=== PATIENT | female | born 1940 | race Caucasian/White ===

== ENCOUNTER 2017-02-14 04:29 | Emergency (ER) | payer MEDICARE, BC ==
[~2017-02-14] VITALS: Ht 170.2 cm; Wt 78.0 kg
[~2017-02-14 04:29] MED LIST: ALBU18HF IH; ASPI-482 PO; CALC-45 PO; CARV3.122 PO; CETI10CA PO; CYCL1DRO EACHEYE; ERYT250C8 PO; LEVO50TA5 PO; LOSA1TAB17 PO; LOTE5DRO3 EACHEYE; LUTE20CA4 PO; MONT10TA9 PO; MULT1CAP15 PO; OMEP40CA5 PO; PRAV20TA2 PO; SODI3.5O3 OP; SUCR1TAB35 PO; VITA100T5 PO
--- NOTE | 2017-02-14 04:31 | ED.ADGEN ---
Adult General Chief Complaint Chief Complaint chest pain (IRMA GOODEN MD) HPI HPI Patient is a 76 y/o female presenting with 5min of sharp anterior chest pain that awakened her from sleep. she started breathing deep and belching to make it go away. no SOA, no N/v/d. no recent illnesses. she has felt well recently and no exertional CP, dyspnea, lightheadedness. she had a heart cath in 2015 at [facility]. no interventions. she has not had stents or bypasses. she has gastroparesis and occasionally takes omeprazole and carafate. currently she is pain free. (IRMA GOODEN MD) Review of Systems Review of Systems Constitutional: Denies fever or chills [] Eyes: Denies change in visual acuity, redness, or eye pain [] HENT: Denies nasal congestion or sore throat [] Respiratory: Denies cough or shortness of breath [] Cardiovascular: substernal sharp chest pain GI: Denies abdominal pain, nausea, vomiting, bloody stools or diarrhea [] : Denies dysuria or hematuria [] Musculoskeletal: Denies back pain or joint pain [] Integument: Denies rash or skin lesions [] Neurologic: Denies headache, focal weakness or sensory changes [] Endocrine: Denies polyuria or polydipsia [] (IRMA GOODEN MD) Current Medications Current Medications Current Medications Medications (Trade) Dose Ordered Sig/[facility] Start Time Stop Time Status Last Admin Dose Admin Aspirin (Children'S Aspirin) 324 mg 1X ONCE 02/14/17 05:00 02/14/17 05:12 DC 02/14/17 05:04 324 MG Multi-Ingredient Mouthwash/Gargle (Gi Cocktail) 20 ml 1X ONCE 02/14/17 05:00 02/14/17 05:12 DC 02/14/17 05:04 20 ML (CUAUHTEMOC ROSA MD) Allergies Allergies Allergies Coded Allergies Type Severity Reaction Last Updated Verified adhesive Adverse Reaction Mild Rash 12/25/14 Yes Sulfa (Sulfonamide Antibiotics) Adverse Reaction Unknown 02/14/17 Yes Uncoded Allergies Type Severity Reaction Last Updated Verified ANTIOBIOTIC CREAM Adverse Reaction Unknown Rash 12/25/14 (CUAUHTEMOC ROSA MD) Physical Exam Physical Exam Constitutional: Well developed, well nourished, no acute distress, non-toxic appearance. [] HENT: Normocephalic, atraumatic, bilateral external ears normal, oropharynx moist, no oral exudates, nose normal. [] Eyes: PERRLA, EOMI, conjunctiva normal, no discharge. [] Neck: Normal range of motion, no tenderness, supple, no stridor. [] Cardiovascular:Heart rate regular rhythm, no murmur [] Lungs & Thorax: Bilateral breath sounds clear to auscultation [] Abdomen: Bowel sounds normal, soft, slightly tender in epigastric area, no masses, no pulsatile masses. [] Skin: Warm, dry, no erythema, no rash. [] Back: No tenderness, no CVA tenderness. [] Extremities: No tenderness, no cyanosis, no clubbing, ROM intact, no edema. [] Neurologic: Alert and oriented X 3, normal motor function, normal sensory function, no focal deficits noted. [] Psychologic: Affect normal, judgement normal, mood normal. [] (IRMA GOODEN MD) Current Patient Data Vital Signs Vital Signs Date Time Temp Pulse Resp B/P (MAP) Pulse Ox O2 Delivery O2 Flow Rate FiO2 02/14/17 05:57 58 14 158/63 (94) 97 Room Air (CUAUHTEMOC ROSA MD) Lab Results Laboratory Tests Test 02/14/17 04:55 02/14/17 05:19 02/14/17 05:49 White Blood Count 6.0 x10^3/uL (4.0-11.0) Red Blood Count 4.33 x10^6/uL (3.50-5.40) Hemoglobin 13.3 g/dL (12.0-15.5) Hematocrit 38.9 % (36.0-47.0) Mean Corpuscular Volume 90 fL (79-100) Mean Corpuscular Hemoglobin 31 pg (25-35) Mean Corpuscular Hemoglobin Concent 34 g/dL (31-37) Red Cell Distribution Width 13.6 % (11.5-14.5) Platelet Count 242 x10^3/uL (140-400) Neutrophils (%) (Auto) 42 % (31-73) Lymphocytes (%) (Auto) 42 % (24-48) Monocytes (%) (Auto) 10 % (0-9) H Eosinophils (%) (Auto) 4 % (0-3) H Basophils (%) (Auto) 2 % (0-3) Neutrophils # (Auto) 2.6 x10^3uL (1.8-7.7) Lymphocytes # (Auto) 2.5 x10^3/uL (1.0-4.8) Monocytes # (Auto) 0.6 x10^3/uL (0.0-1.1) Eosinophils # (Auto) 0.2 x10^3/uL (0.0-0.7) Basophils # (Auto) 0.1 x10^3/uL (0.0-0.2) Sodium Level 138 mmol/L (136-145) Potassium Level 4.4 mmol/L (3.5-5.1) Chloride Level 103 mmol/L (98-107) Carbon Dioxide Level 33 mmol/L (21-32) H Anion Gap 2 (6-14) L Blood Urea Nitrogen 12 mg/dL (7-20) Creatinine 0.8 mg/dL (0.6-1.0) Estimated GFR (Cockcroft-Gault) 70.1 BUN/Creatinine Ratio 15 (6-20) Glucose Level 105 mg/dL (70-99) H Calcium Level 10.0 mg/dL (8.5-10.1) Total Bilirubin 0.5 mg/dL (0.2-1.0) Aspartate Amino Transferase (AST) 24 U/L (15-37) Alanine Aminotransferase (ALT) 29 U/L (14-59) Alkaline Phosphatase 57 U/L (46-116) Troponin I Quantitative < 0.017 ng/mL (0-0.055) Total Protein 7.9 g/dL (6.4-8.2) Albumin 3.9 g/dL (3.4-5.0) Albumin/Globulin Ratio 1.0 (1.0-1.7) Lipase 161 U/L (73-393) Urine Collection Type Unknown Urine Color Yellow Urine Clarity Clear Urine pH 6.0 Urine Specific [place] 1.015 Urine Protein Neg (NEG-TRACE) Urine Glucose (UA) Neg mg/dL (NEG) Urine Ketones (Stick) Neg mg/dL (NEG) Urine Blood Neg (NEG) Urine Nitrite Neg (NEG) Urine Bilirubin Neg (NEG) Urine Urobilinogen Dipstick 0.2 mg/dL (0.2 mg/dL) Urine Leukocyte Esterase Trace (NEG) Urine RBC 0 /HPF (0-2) Urine WBC 1-4 /HPF (0-4) Urine Squamous Epithelial Cells Few /LPF Urine Bacteria Few /HPF (0-FEW) (CUAUHTEMOC ROSA MD) Lab Results Laboratory Tests Test 02/14/17 04:55 02/14/17 05:19 White Blood Count 6.0 x10^3/uL (4.0-11.0) Red Blood Count 4.33 x10^6/uL (3.50-5.40) Hemoglobin 13.3 g/dL (12.0-15.5) Hematocrit 38.9 % (36.0-47.0) Mean Corpuscular Volume 90 fL (79-100) Mean Corpuscular Hemoglobin 31 pg (25-35) Mean Corpuscular Hemoglobin Concent 34 g/dL (31-37) Red Cell Distribution Width 13.6 % (11.5-14.5) Platelet Count 242 x10^3/uL (140-400) Neutrophils (%) (Auto) 42 % (31-73) Lymphocytes (%) (Auto) 42 % (24-48) Monocytes (%) (Auto) 10 % (0-9) H Eosinophils (%) (Auto) 4 % (0-3) H Basophils (%) (Auto) 2 % (0-3) Neutrophils # (Auto) 2.6 x10^3uL (1.8-7.7) Lymphocytes # (Auto) 2.5 x10^3/uL (1.0-4.8) Monocytes # (Auto) 0.6 x10^3/uL (0.0-1.1) Eosinophils # (Auto) 0.2 x10^3/uL (0.0-0.7) Basophils # (Auto) 0.1 x10^3/uL (0.0-0.2) Sodium Level 138 mmol/L (136-145) Potassium Level 4.4 mmol/L (3.5-5.1) Chloride Level 103 mmol/L (98-107) Carbon Dioxide Level 33 mmol/L (21-32) H Anion Gap 2 (6-14) L Blood Urea Nitrogen 12 mg/dL (7-20) Creatinine 0.8 mg/dL (0.6-1.0) Estimated GFR (Cockcroft-Gault) 70.1 BUN/Creatinine Ratio 15 (6-20) Glucose Level 105 mg/dL (70-99) H Calcium Level 10.0 mg/dL (8.5-10.1) Total Bilirubin 0.5 mg/dL (0.2-1.0) Aspartate Amino Transferase (AST) 24 U/L (15-37) Alanine Aminotransferase (ALT) 29 U/L (14-59) Alkaline Phosphatase 57 U/L (46-116) Troponin I Quantitative < 0.017 ng/mL (0-0.055) Total Protein 7.9 g/dL (6.4-8.2) Albumin 3.9 g/dL (3.4-5.0) Albumin/Globulin Ratio 1.0 (1.0-1.7) Lipase 161 U/L (73-393) (IRMA GOODEN MD) EKG EKG Time 0443 HR 56 occasional PVC's, no ST elevation. (IRMA GOODEN MD) Radiology/Procedures Radiology/Procedures cxr unremarkable[] (IRMA GOODEN MD) Course & Med Decision Making Course & Med Decision Making Pertinent Labs and Imaging studies reviewed. (See chart for details) Will have Dr. Rosa f/u testing and disposition [] (IRMA GOODEN MD) Course & Med Decision Making 0600 I assumed care of the patient from Dr. Gooden. We discussed the case. Labs are pending, also pending is cardiac catheterization report from [facility] from 2015. Labs are all unremarkable. I reviewed the EKG and the chest x-ray as well. Cardiac catheterization report dated July 28, 2015 was faxed from [facility]. Right coronary, left main, LAD, left circumflex are all free of any angiographically significant stenosis. Ramus intermedius vessel had it focal 20% stenosis with normal flow noted. Impression was mild nonobstructive coronary disease. Patient has not developed any significant risk factors for coronary artery disease since this essentially negative heart catheterization a year and a half ago. I visited with the patient and her . She has been resting comfortably without symptoms in the ED. Although her med list includes omeprazole, she has not been taking it regularly. I encouraged her to resume regular use of omeprazole and have liquid and acid on hand in case she has another episode. Return to ED if any concerning symptoms, follow up with her memory care if she continues to have any episodes. Patient and her are agreeable to that plan. (CUAUHTEMOC ROSA MD) Final Impression Final Impression chest pain[] Problems: (IRMA GOODEN MD) Dragon Disclaimer Dragon Disclaimer This electronic medical record was generated, in whole or in part, using a voice recognition dictation system. (IRMA GOODEN MD) IRMA GOODEN MD Feb 14, 2017 04:31 CUAUHTEMOC ROSA MD Feb 14, 2017 06:43
[2017-02-14] MEDS ORDERED: ASPIRIN 81 MG TAB.CHEW PO ONE (05:00)
[2017-02-14] MEDS ORDERED: LIDO:MAALOX 1:1 20 ML SINGLE DOSE PO ONE (05:00)
[2017-02-14 05:15] LABS: BASO # 0.1 x10^3/uL (0.0-0.2); BASO % 2 % (0-3); EOS # 0.2 x10^3/uL (0.0-0.7); EOS % 4 % (0-3); HEMATOCRIT 38.9 % (36.0-47.0); HEMOGLOBIN 13.3 g/dL (12.0-15.5); LYMPH # 2.5 x10^3/uL (1.0-4.8); LYMPH % 42 % (24-48); MEAN CORPUSCULAR HEMOGLOBIN 31 pg (25-35); MEAN CORPUSCULAR HGB CONC 34 g/dL (31-37); MEAN CORPUSCULAR VOLUME 90 fL (79-100); MONO # 0.6 x10^3/uL (0.0-1.1); MONO % 10 % (0-9); NEUT # 2.6 x10^3uL (1.8-7.7); NEUT % 42 % (31-73); PLATELET COUNT 242 x10^3/uL (140-400); RED BLOOD COUNT 4.33 x10^6/uL (3.50-5.40); RED CELL DISTRIBUTION WIDTH 13.6 % (11.5-14.5)
[2017-02-14 05:44] LABS: ALBUMIN 3.9 g/dL (3.4-5.0); CREATININE 0.8 mg/dL (0.6-1.0); GFR 70.1; POTASSIUM 4.4 mmol/L (3.5-5.1); TOTAL BILIRUBIN 0.5 mg/dL (0.2-1.0); TOTAL PROTEIN 7.9 g/dL (6.4-8.2)
[2017-02-14 05:57] VITALS: BP 158/63
[2017-02-14 06:04] LABS: BACTERIA,URINE FEW /HPF (0-FEW); BILIRUBIN,URINE NEG (NEG); CLARITY,URINE CLEAR; COLOR,URINE YELLOW; GLUCOSE,URINE NEG (NEG); NITRITE,URINE NEG (NEG); RBC,URINE 0 /HPF (0-2); SQUAMOUS EPITHELIAL CELL,UR FEW /LPF; UROBILINOGEN,URINE 0.2 mg/dL (0.2 mg/dL)
--- NOTE | 2017-02-14 06:32 | EKG ---
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
--- NOTE | 2017-02-14 07:13 | RAD ---
Portable chest, 02/14/2017: History: Chest pain Comparison is made to a study from 04/03/2012. The heart is enlarged. The pulmonary vascularity is normal. There is scarring over the pulmonary apices. No acute infiltrates are seen. There is no evidence of pleural fluid. IMPRESSION: 1. Cardiomegaly. 2. No acute abnormality is detected.
== END 2017-02-14 06:46 | disposition home or self-care (01) ==
LOC: ER 04:29
DX: R07.89 Other chest pain (principal); R07.2 Precordial pain; Z95.818 Presence of other cardiac implants and grafts; Z88.2 Allergy status to sulfonamides; Z88.8 Allergy status to other drugs, medicaments and biological substances
CPT/HCPCS: 36415; 71010; 80053; 81001; 83690; 84484; 85025; 87086; 93005; 99285-25

== ENCOUNTER → 2017-04-06 | Outpatient (CLI) | payer MEDICARE, BC ==
[~2017-04-06] MED LIST changes: -LOSA1TAB17 PO; +LOSA1TAB22 PO
--- NOTE | 2017-04-06 15:06 | RAD ---
DATE: 04/06/2017 EXAM: MAMMO KIM DENNIS RAHMAN, BREAST RIGHT HISTORY: Right nipple discharge. COMPARISON: 04/05/2016. This study was interpreted with the benefit of Computerized Aided Detection (CAD). FINDINGS: The parenchymal pattern is stable. No dominant mass or malignant appearing microcalcifications are seen. There are benign calcifications bilaterally. The axillae are unremarkable. Breast Density: HETERO The breast parenchyma is heterogeneously dense, which could reduce sensitivity of mammography. Breast parenchyma level C. IMPRESSION: No mammographic features suspicious for malignancy are identified. Right breast ultrasound will follow to evaluate the retroareolar right breast. Right breast ultrasound: Sonographic interrogation of the retroareolar right breast was performed. There are mildly prominent ducts at this location. No intraductal mass is seen. No suspicious abnormality is detected. Impression: Unremarkable right breast ultrasound. BI-RADS CATEGORY: 2 BENIGN FINDING(S) RECOMMENDED FOLLOW-UP: 12M 12 MONTH FOLLOW-UP PQRS compliance statement: Patient information was entered into a reminder system with a target due date 04/06/2018 for the next mammogram. Mammography is a sensitive method for finding small breast cancers, but it does not detect them all and is not a substitute for careful clinical examination. A negative mammogram does not negate a clinically suspicious finding and should not result in delay in biopsying a clinically suspicious abnormality. "Our facility is accredited by the [employer] Mammography Program."
== END | disposition home or self-care (01) ==
LOC: MAMMO 13:07
PROVIDERS: ATTEND Surgery
DX: N64.52 Nipple discharge (principal); R92.1 Mammographic calcification found on diagnostic imaging of breast
CPT/HCPCS: 76641; G0204; G0279; 77062; 77066

== ENCOUNTER → 2017-11-30 | Outpatient (CLI) | payer MEDICARE, BC ==
[2017-11-30 12:15] LABS: ALBUMIN 3.8 g/dL (3.4-5.0); CALCIUM 9.5 mg/dL (8.5-10.1); CREATININE 0.8 mg/dL (0.6-1.0); GFR 69.9; TOTAL BILIRUBIN 0.7 mg/dL (0.2-1.0); TOTAL PROTEIN 7.8 g/dL (6.4-8.2)
== END | disposition home or self-care (01) ==
LOC: LAB 10:35
PROVIDERS: ATTEND Nurse Practitioner
DX: E78.5 Hyperlipidemia, unspecified (principal); I10 Essential (primary) hypertension; E03.9 Hypothyroidism, unspecified
CPT/HCPCS: 36415; 80053; 80061

== ENCOUNTER → 2018-05-21 | Outpatient (CLI) | payer MEDICARE, BC ==
[~2018-05-21] MED LIST changes: -CARV3.122 PO; +CARV3.1230 PO
--- NOTE | 2018-05-22 14:57 | RAD ---
DATE: 05/21/2018 4:00 PM EXAM: MAMMO KIM SCREENING BILATERAL HISTORY: routine screening evaluation. COMPARISON: Prior mammographic imaging dating back to 02/02/2009 Bilateral CC and MLO views of the breasts were performed. Bilateral breast tomosynthesis was performed in CC and MLO projections. This study was interpreted with the benefit of Computerized Aided Detection (CAD ). Breast Density: The breast parenchyma is dense, which could reduce the sensitivity of mammography. Breast parenchyma level density D. FINDINGS: Benign calcifications are present. No suspicious masses, microcalcifications or architectural distortion is present to suggest malignancy in either breast. The visualized axillae are unremarkable. IMPRESSION: No mammographic evidence of malignancy. BI-RADS CATEGORY: 2 BENIGN FINDING(S) RECOMMENDED FOLLOW-UP: 12M 12 MONTH FOLLOW-UP Annual screening mammography is recommended, unless clinically indicated sooner based on symptoms or change in physical exam. PQRS compliance statement: Patient information was entered into a reminder system with a target due date 05/22/2019 for the next mammogram. Mammography is a sensitive method for finding small breast cancers, but it does not detect them all and is not a substitute for careful clinical examination. A negative mammogram does not negate a clinically suspicious finding and should not result in delay in biopsying a clinically suspicious abnormality. "Our facility is accredited by the [employer] Mammography Program." JOHNNAD
== END | disposition home or self-care (01) ==
LOC: MAMMO 14:06
PROVIDERS: ATTEND Family Medicine
DX: Z12.31 Encounter for screening mammogram for malignant neoplasm of breast (principal)
CPT/HCPCS: 77063; 77067

== ENCOUNTER → 2018-08-26 | Outpatient (CLI) | payer MEDICARE, BC ==
[~2018-08-26] MED LIST changes: -ALBU18HF IH; +ALBU2.5V8 IH
--- NOTE | 2018-08-26 12:22 | RAD ---
EXAM: Right hip, 2 views. HISTORY: Instability. COMPARISON: None. FINDINGS: 2 views of the right hip are obtained. There is no fracture, dislocation or subluxation. There is minimal marginal acetabular spurring. There is a small bump at the femoral head-neck junction, not within limits to suggest chronic impingement. There is degenerative change at the lumbosacral junction. IMPRESSION: 1. No acute osseous finding. 2. Minimal right hip osteoarthritis. Electronically signed by: Macie Beatty MD (08/26/2018 12:20 PM) [email or web address]
== END | disposition home or self-care (01) ==
LOC: RAD 12:04
PROVIDERS: ATTEND Family Medicine
DX: M25.351 Other instability, right hip (principal); M47.897 Other spondylosis, lumbosacral region
CPT/HCPCS: 73502

== ENCOUNTER → 2019-03-18 | Outpatient (CLI) | payer MEDICARE, BC ==
[2017-02-14 05:57] VITALS: BP_DIAS 63
[~2019-03-18] MED LIST changes: +DEXAMETHASONE SOD PHOS 10 MG/ML VIAL ONE; +ERYT250T14 PO; +HYDR-2155 PO; +ISOSULFAN BLUE 1% 50 MG/5 ML VIAL. SQ ONE; +IV RINGERS SOLUTION,LACTATED 1,000 ML IV SCH; +LIDOCAINE 1% PF 2 ML VIAL. SQ ONE; +LIDOCAINE 2% TOPICAL JELLY 5GM TUBE. TP ONE; +MAGN500C10 PO; +MONT10TA80 PO; -MONT10TA9 PO; +MORPHINE SULFATE 2 MG/ML DISP.SYRIN. IV PRN; +MORPHINE SULFATE 4 MG/ML DISP.SYRIN. IV PRN; +OMEP40CA45 PO; -OMEP40CA5 PO; +ONDANSETRON PF 4 MG/2 ML VIAL. IV PRN; +ONDANSETRON PF 4 MG/2 ML VIAL. ONE; +PANT20TA3 PO; +PROCHLORPERAZINE 10 MG/2 ML VIAL. IV PRN; +PROPOFOL 20 ML IV ONE; +SEVOFLURANE 31 TO 60 MINUTES. IH ONE; +SODI56GE DT
[2019-04-18 12:01] LABS: BASO % 1 % (0-3); EOS # 0.2 x10^3/uL (0.0-0.7); EOS % 3 % (0-3); HEMOGLOBIN 13.5 g/dL (12.0-15.5); LYMPH # 2.1 x10^3/uL (1.0-4.8); LYMPH % 39 % (24-48); MEAN CORPUSCULAR HEMOGLOBIN 30 pg (25-35); MEAN CORPUSCULAR HGB CONC 33 g/dL (31-37); MEAN CORPUSCULAR VOLUME 92 fL (79-100); MONO # 0.5 x10^3/uL (0.0-1.1); MONO % 10 % (0-9); NEUT # 2.5 x10^3uL (1.8-7.7); NEUT % 47 % (31-73); PLATELET COUNT 304 x10^3/uL (140-400); RED BLOOD COUNT 4.44 x10^6/uL (3.50-5.40); RED CELL DISTRIBUTION WIDTH 14.2 % (11.5-14.5); WHITE BLOOD COUNT 5.4 x10^3/uL (4.0-11.0)
[2019-04-18 12:16] LABS: ALBUMIN 3.8 g/dL (3.4-5.0); CALCIUM 9.2 mg/dL (8.5-10.1); CREATININE 0.7 mg/dL (0.6-1.0); GFR 81.1; POTASSIUM 3.8 mmol/L (3.5-5.1)
[2019-04-23 11:30] VITALS: BP_SYST 141
== END | disposition home or self-care (01) ==
LOC: LAB 09:35
PROVIDERS: ATTEND Surgery
DX: Z01.818 Encounter for other preprocedural examination (principal); N64.52 Nipple discharge; Z88.2 Allergy status to sulfonamides; Z88.8 Allergy status to other drugs, medicaments and biological substances
CPT/HCPCS: 36415; 80048; 82040; 85025; J0696; J1100; J2405; J2704; Q9968

== ENCOUNTER → 2019-04-23 | Outpatient (CLI) | payer MEDICARE, BC ==
[~2019-04-23] MED LIST changes: +BUPIVACAINE MPF 0.5% 30 ML VIAL. IJ ONE; +BUPIVACAINE MPF 0.5% 30 ML VIAL. ONE; -DEXAMETHASONE SOD PHOS 10 MG/ML VIAL ONE; +HYDROcodone/APAP 5/325MG 1 TAB TABLET ONE; +HYDROcodone/APAP 5/325MG 1 TAB TABLET PO ONE; -LIDOCAINE 2% TOPICAL JELLY 5GM TUBE. TP ONE; -ONDANSETRON PF 4 MG/2 ML VIAL. ONE; -PROPOFOL 20 ML IV ONE; -SEVOFLURANE 31 TO 60 MINUTES. IH ONE; +ceFAZolin SODIUM 2 GM in IV DEXTROSE 5% 50 ML IV ONE
--- NOTE | 2019-04-23 08:48 | PDOC1 ---
HISTORY & PHYSICAL DATE OF ADMISSION: 04/23/2019 DATE OF DISCHARGE: same HPI: HPI: Malu is a 79 yo lady with persistent bloody discharge from her left nipple. Recent galactogram showed filling defects in the upper outer ducts. She comes in for excision PAST MEDICAL HISTORY: PMH: HPT hypothyroidism osteoporosis GERD PSH: rj hys T and A D & C C section right breast biopsy 2013 SH: non smoker ALLERGIES: Allergies Coded Allergies Type Severity Reaction Last Updated Verified bacitracin Allergy Unknown 04/23/19 Yes polymyxin B Allergy Unknown 04/23/19 Yes adhesive Adverse Reaction Mild Rash 04/23/19 Yes Sulfa (Sulfonamide Antibiotics) Adverse Reaction Unknown 04/23/19 Yes Uncoded Allergies Type Severity Reaction Last Updated Verified ANTIOBIOTIC CREAM Adverse Reaction Unknown Rash 12/25/14 MEDS: MEDICATIONS: Current Medications Medications (Trade) Dose Ordered Sig/[place] Start Time Stop Time Status Last Admin Dose Admin Cefazolin Sodium 2 gm/Dextrose 50 ml @ 100 mls/hr 1X ONCE 04/23/19 08:15 04/23/19 08:44 Fentanyl Citrate (Fentanyl 2ml Vial) 50 mcg PRN Q5MIN PRN 04/23/19 08:30 04/24/19 08:29 Isosulfan Blue (Isosulfan Blue) 30 mg 1X ONCE 04/23/19 09:00 04/23/19 09:01 Lactated Ringer's 1,000 ml @ 0 mls/hr Q0M 04/23/19 08:30 04/24/19 08:29 Lidocaine HCl 2 ml 1X ONCE 04/23/19 08:30 04/23/19 08:31 DC Morphine Sulfate (Morphine 2mg Syringe) 2 mg PRN Q10MIN PRN 04/23/19 08:30 04/24/19 08:29 Morphine Sulfate (Morphine 4mg Syringe) 4 mg PRN Q10MIN PRN 04/23/19 08:30 04/24/19 08:29 Ondansetron HCl (Zofran) 4 mg PRN Q6HRS PRN 04/23/19 08:30 04/24/19 08:29 Prochlorperazine Edisylate (Compazine) 5 mg PRN 1X PRN 04/23/19 08:30 04/24/19 08:29 LABS: see printed results ROS: Gen no chills, fevers Cardiac no chest pain or palpitations Resp no cough or wheezing PHYSICAL EXAM: Alert NAD RRR normal respirations left breast unremarkable, with compression of the upper outer circumareolar area some bloody discharge is seen VTE PROPHYLAXIS: VTE Pharmacological Prophylaxi: No ASSESSMENT/PLAN ASSESSMENT: bloody discharge right nipple, hx of papilloma PLAN: excise with localization using probes and lymphazurin discussed risks including but not limited to bleeding, infection, persistent nipple drainage in the future she will proceed FABIAN DO MD Apr 23, 2019 08:48
--- NOTE | 2019-04-23 09:44 | PDOC ---
BRIEF OPERATIVE NOTE Date: Apr 23, 2019 Pre-Op Diagnosis bloody discharge, right nipple Post-Op Diagnosis same Procedure Performed excision right breast tissue with localization Surgeon Chucky Anesthesiologist Roberto Anesthesia Type: General (LMA) Blood Loss 5cc IV Fluid 250cc Specimens Obtained right breast papilloma right breast tissue 10:00 Findings fibrous change Complications none Additional Remarks Wk # [id number] FABIAN DO MD Apr 23, 2019 09:44
--- NOTE | 2019-04-23 09:47 | DISCH ---
DISCHARGE INSTRUCTIONS-DC Condition on Discharge Condition on Discharge: Stable Activity after Discharge Activity Instructions for Disc: Activity as tolerated, Avoid exertion Driving Instructions after Dis: Do not drive today Diet after Discharge Diet after Discharge: Regular Wound/Incision Care Wound/Incision Care: Ice to area for comfort Other wound/incision instructi: may shower Sunday Follow-Up Follow up with: Chucky two weeks FABIAN DO MD Apr 23, 2019 09:47
--- NOTE | 2019-04-23 10:13 | OP ---
DATE OF SURGERY: 04/23/2019 PREOPERATIVE DIAGNOSIS: Bloody discharge, right nipple. POSTOPERATIVE DIAGNOSIS: Bloody discharge, right nipple. PROCEDURE: Excision of right breast tissue with localization. SURGEON: Fabian Do MD ANESTHESIA: General LMA. ESTIMATED BLOOD LOSS: 5 mL. INTRAVENOUS FLUIDS: 250 mL. OPERATIVE REPORT: The patient was brought to the operating suite, given a general LMA and the right breast prepped and draped in usual sterile fashion. Compression of the nipple and subareolar tissue at the 10 o'clock position produced some clear drainage. The opening was then cannulated with a small tear duct probe. This allowed placement of a 22-Syriac IV catheter to inject some Lymphazurin to stain the tissue of interest. 0.5% Marcaine was infiltrated circumareolarly from 9-12 o'clock. Incision made, the areola and nipple were reflected superomedially to identify the stain tissue, which was then harvested. Hemostasis with cautery. When a correct sponge count was obtained, the breast tissue was approximated with 3-0 Vicryl, skin closed with a subcuticular 4-0 Monocryl. Steri-Strips and sterile dressings applied. The patient was awakened from her anesthetic and taken to the recovery room in satisfactory condition. FABIAN DO MD DR: DEBBIE/nts JOB#: [id number] / [id number]
[2019-04-23 11:30] VITALS: BP 141/63
--- NOTE | 2019-04-24 18:06 | PATHOLOGY ---
[facility] Accession Number: [id number] . 01 Material submitted: . PART A: breast - RIGHT BREAST PAPILLOMAS. Modifiers: right PART B: breast - RIGHT BREAST TISSUE, 10:00. Modifiers: right, 10:00 . 01 Clinical history: . Bloody discharge from right nipple . 02 Diagnosis: A. Segments of breast tissue, right breast papillomas: - Ductal papillomas, showing focal necrosis and focal sclerosis. . B. Segments of breast tissue, right breast tissue at 10:00: - Proliferative fibrocystic changes with the following components: - Mild to moderate ductal epithelial hyperplasia, focal. - Duct ectasia. - Cystic change. - Apocrine metaplasia. - Sclerosing adenosis, focal. - Scattered microcalcifications identified. . (JPM:fredrick; 04/23/2019) [facility] 04/24/2019 1637 Local . 02 Comment: The entire specimen is submitted for histologic evaluation. There is no atypia or evidence of malignancy. (JPM:fredrick; 04/23/2019) . 02 Electronically signed: . Ryan Ca MD, Pathologist NPI- [id number] . 01 Gross description: . A. The specimen is received in formalin, labeled "Malu Stone, right breast papilloma", few irregular fragments of church soft tissue measuring 1.0 x 0.7 x 0.2 cm in aggregate. Entirely submitted in A1. Specimen excised at: 0916 on 04/23/19, placed in formalin at: 0918 on 04/23/19, formalin exposure: Approximately 14 hours and 20 minutes . B. The specimen is received in formalin, labeled "Dye, Malu, right breast tissue at 10:00", are two unoriented segments of fibroadipose tissue weighing 8 g and measuring 2.7 x 1.1 x 0.5 cm (B1-B2) and 3.4 x 2.8 x 1.5 cm (B3-B9). Both the segments are inked black and is serially sectioned to show a smith-white fibrous and yellow cut surface. The specimen is entirely submitted in B1-B9. Specimen excised at: 0926 on 04/23/19, placed in formalin at: 0932 on 04/23/19, formalin exposure: Approximately 13 hours and 8 minutes. ([facility]; 04/23/2019) . . . [facility] 04/23/20192004 Local . 02 Pathologist provided ICD-10: D24.1, N60.11, N60.41, N60.81, N60.21 . 02 CPT . 572588, 568975 Specimen Comment: A courtesy copy of this report has been sent to [phone] Specimen Comment: Report sent to / DR VARGAS Performed at: 01 [facility] [address] [facility] [address], [place] [id number] MD Gurjit Mead MD Phone: [phone] Performed at: 02 [facility] [address], [place] [id number] MD Ryan Ca MD Phone: [phone]
== END ==
LOC: SURG 07:59
PROVIDERS: ATTEND Surgery
DX: D24.1 Benign neoplasm of right breast (principal); N64.52 Nipple discharge; N60.11 Diffuse cystic mastopathy of right breast; N60.41 Mammary duct ectasia of right breast; N60.81 Other benign mammary dysplasias of right breast; N60.21 Fibroadenosis of right breast; I10 Essential (primary) hypertension; E03.9 Hypothyroidism, unspecified; E78.5 Hyperlipidemia, unspecified; K21.9 Gastro-esophageal reflux disease without esophagitis; J45.909 Unspecified asthma, uncomplicated; Z87.39 Personal history of other diseases of the musculoskeletal system and connective tissue; Z90.49 Acquired absence of other specified parts of digestive tract; Z90.710 Acquired absence of both cervix and uterus; Z88.1 Allergy status to other antibiotic agents; Z88.8 Allergy status to other drugs, medicaments and biological substances
CPT/HCPCS: 19125; 88305; J0690; J1100; J2405; J2704; J3010; J3490; J7120; Q9968; 19120

== ENCOUNTER → 2019-10-28 | Outpatient (CLI) | payer MEDICARE, BC ==
[2019-04-23 11:30] VITALS: BP 141/63
[~2019-10-28] MED LIST changes: -BUPIVACAINE MPF 0.5% 30 ML VIAL. IJ ONE; -BUPIVACAINE MPF 0.5% 30 ML VIAL. ONE; -HYDROcodone/APAP 5/325MG 1 TAB TABLET ONE; -HYDROcodone/APAP 5/325MG 1 TAB TABLET PO ONE; -ISOSULFAN BLUE 1% 50 MG/5 ML VIAL. SQ ONE; -IV RINGERS SOLUTION,LACTATED 1,000 ML IV SCH; -LIDOCAINE 1% PF 2 ML VIAL. SQ ONE; -MORPHINE SULFATE 2 MG/ML DISP.SYRIN. IV PRN; -MORPHINE SULFATE 4 MG/ML DISP.SYRIN. IV PRN; -ONDANSETRON PF 4 MG/2 ML VIAL. IV PRN; -PROCHLORPERAZINE 10 MG/2 ML VIAL. IV PRN; -ceFAZolin SODIUM 2 GM in IV DEXTROSE 5% 50 ML IV ONE
--- NOTE | 2019-10-28 15:36 | RAD ---
EXAMINATION: DIGITAL DIAGNOSTIC RT HISTORY: Papilloma removal. 6 month follow-up. COMPARISON/CORRELATION: 05/21/2018 screening mammographic exam FINDINGS: Full-field digital diagnostic mammographic exam of the right breast was performed. MLO and CC projections were provided. Tomosynthesis was performed. CAD was utilized. The breasts are extremely dense, which lowers the sensitivity of mammography. Minimal dystrophic calcification in the right inner breast anteriorly is noted in the interval. Benign appearing axillary lymph node(s) are present. There are no suspicious calcification clusters. No new masses or suspicious distortion. IMPRESSION: Right breast - BI-RADS Category: 1: Negative. Annual mammography is recommended. Electronically signed by: Davide Monroy MD (10/28/2019 3:33 PM) [email or web address]
== END ==
LOC: MAMMO 12:59
PROVIDERS: ATTEND Surgery
DX: Z09 Encounter for follow-up examination after completed treatment for conditions other than malignant neoplasm (principal); D24.1 Benign neoplasm of right breast; R92.1 Mammographic calcification found on diagnostic imaging of breast
CPT/HCPCS: 77065

== ENCOUNTER → 2020-09-13 | Outpatient (CLI) | payer MEDICARE, BC ==
[2019-04-23 11:30] VITALS: BP 141/63
[~2020-09-13] MED LIST changes: +ERYT250C33 PO; -ERYT250C8 PO; -PANT20TA3 PO; +PANT20TA4 PO
--- NOTE | 2020-09-16 16:57 | RAD ---
DATE: 09/13/2020 EXAM: MAMMO KIM SCREENING BILATERAL HISTORY: Screening COMPARISON: 10/28/2019, 03/17/2019, 05/21/2018, 04/06/2017, 04/05/2016, 03/17/2015 This study was interpreted with the benefit of Computerized Aided Detection (CAD). Breast Density: HETERO The breast parenchyma is heterogenously dense, which could reduce sensitivity of mammography. Breast parenchyma level C. FINDINGS: No mass, suspicious calcification, or architectural distortion in either breast. IMPRESSION: No evidence of malignancy. BI-RADS CATEGORY: 1 NEGATIVE RECOMMENDED FOLLOW-UP: 12M 12 MONTH FOLLOW-UP PQRS compliance statement: Patient information was entered into a reminder system with a target due date for the next mammogram. Mammography is a sensitive method for finding small breast cancers, but it does not detect them all and is not a substitute for careful clinical examination. A negative mammogram does not negate a clinically suspicious finding and should not result in delay in biopsying a clinically suspicious abnormality. "Our facility is accredited by the [employer] Mammography Program."
== END ==
LOC: MAMMO 10:58
PROVIDERS: ATTEND Family Medicine
DX: Z12.31 Encounter for screening mammogram for malignant neoplasm of breast (principal)
CPT/HCPCS: 77063; 77067

== ENCOUNTER → 2021-09-14 | Outpatient (CLI) | payer MEDICARE, BC ==
[2019-04-23 11:30] VITALS: BP 141/63
[~2021-09-14] MED LIST changes: +MAGN500C PO; -MAGN500C10 PO; -OMEP40CA45 PO; +OMEP40CA7 PO
--- NOTE | 2021-09-14 13:01 | RAD ---
INDICATION: 81 years of age asymptomatic female patient presents for screening mammography. No person al or family history of breast cancer. History of benign right breast biopsy. TECHNIQUE: Full field craniocaudal and mediolateral oblique images of both breasts were obtained usi ng digital technique with tomosynthesis and also analyzed with computer-aided detection software. COMPARISON: Prior mammographic imaging dating back to 03/17/2019. BREAST COMPOSITION: Category C: The breast tissue is heterogeneously dense, which could obscure detec tion of small masses. FINDINGS: No suspicious masses, microcalcifications or architectural distortion is present to suggest malignanc y in either breast. The visualized axillae are unremarkable. IMPRESSION: No mammographic evidence of malignancy. RECOMMENDATION: Annual screening mammography is recommended, unless clinically indicated sooner based on symptoms or change in physical exam. BIRADS 1: NEGATIVE This study was interpreted with the benefit of Computerized Aided Detection (CAD). ?Your patient's mammogram demonstrates that she has dense breast tissue (breast density category C or D), which could hide abnormalities, and if she has other risk factors for breast cancer that have be en identified, she might benefit from supplemental screening tests that may be suggested by you as he r ordering physician. Dense breast tissue, in and of itself, is a relatively common condition. Theref ore, this information is not provided to cause undue concern, but rather to raise your awareness and to promote discussion with your patient regarding the presence of other risk factors, in addition to dense breast tissue. Your patient's mammography results will be sent to her. Patient information is entered into the reminder system with a target due date for the next screening mammogram. Mammography is the most sensitive method for finding small breast cancers, but it does not detect the m all and is not a substitute for careful clinical examination. A negative mammogram does not negate a clinically suspicious finding and should not result in delay in biopsying a clinically suspicious a bnormality. "Our facility is accredited by the [employer] Mammography Program." Electronically signed by: Parish An DO (09/14/2021 12:58 PM) [id number]
== END ==
LOC: MAMMO 11:11
PROVIDERS: ATTEND Family Medicine
DX: Z12.31 Encounter for screening mammogram for malignant neoplasm of breast (principal)
CPT/HCPCS: 77063; 77067